=== PATIENT | male | born 1935 | race Caucasian/White ===

== ENCOUNTER 2016-11-07 17:34 | Inpatient (IN) | payer OTHER ==
[~2016-11-07] VITALS: Ht 165.1 cm; Wt 77.3 kg
[~2016-11-07 17:34] MED LIST: ASPIRIN EC81 M1 PO; BRILINTA90 M1 PO; HEPARIN 2525000 UNI1 IV; LASIX20 M1 PO; LASIX40 M1 PO; LIPITOR80 MG PO; LISINOPRIL5 M1 PO; METFORMIN HCL750 MG PO; METOPROLOL SUCC50 M2 PO; MUCINEX600 MG; NITROSTAT 0.4MG1 BO2 SL; TIMOLOL MALEATE10 M1 OD; ZOLOFT25 M1 PO
--- NOTE | 2016-11-07 17:39 | ED DYSPNEA/ASTHMA COMPLAINT ---
History of Present Illness General Chief Complaint: General Adult Stated Complaint: BIBA FOR COUGH,CONGESTION, HX CHF Source: patient, family, old records, EMS Exam Limitations: confusion Allergies Coded Allergies: NO KNOWN ALLERGIES (10/28/15) Reconcile Medications Aspirin (Ecotrin*) 81 MG TABLET.DR 1 TAB PO DAILY HEART/BLOOD (Reported) Atorvastatin (Atorvastatin Calcium) 80 MG TAB 1 MG PO 1700 heart health Furosemide (Lasix) 20 MG TABLET 1 TAB PO BID DIURETIC (Reported) Lisinopril 5 MG TABLET 1 TAB PO DAILY HTN (Reported) Metformin HCl (Metformin HCl ER) 750 MG TAB.ER.24H 1 TAB PO BID DM (Reported) Sertraline HCl (Zoloft) 25 MG TABLET 75 MG PO DAILY DEPRESSION (Reported) Ticagrelor (Brilinta) 90 MG TABLET 1 TAB PO BID HEART/BLOOD (Reported) Triage Nurses Notes Reviewed? yes Onset: Abrupt Duration: week(s): (1), constant, getting worse Timing: recent history Severity: moderate, severe HPI: 80-year-old male comes into emergency room for further evaluation of altered mental status and shortness of breath is been going on for the past week getting progressively worse. Patient has a history of congestive heart failure. Family denies any fever. Patient denies any pain anywhere or any vomiting. Patient is able to answer questions and follow commands but is confused on basic things. Family reports that this is not normal. He has wounds on his feet bilaterally. There has been no falls or trauma recently. (MEL GALAVIZ,NORM) Vital Signs & Intake/Output Vital Signs & Intake/Output Vital Signs Date Time Temp Pulse Resp B/P Pulse O2 O2 Flow FiO2 Ox Delivery Rate 11/07 2056 96.5 94 18 94/54 98 Room Air 11/07 1999 96.5 92 18 86/54 99 Room Air 11/07 191 99 Room Air 11/07 1909 96.5 87 18 91/57 98 Room Air 11/07 1836 95 20 90/57 98 Room Air 11/07 1754 94.0 88 20 86/59 99 Room Air Past History Travel History Traveled to [place] past 21 day No Medical History Any Pertinent Medical History? 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 Hx Contributory? No (NORM RAMIREZ) Review of Systems Review of Systems Constitutional: Reports: see HPI. EENTM: Reports: no symptoms. Respiratory: Reports: see HPI. Cardiovascular: Reports: no symptoms. GI: Reports: no symptoms. Genitourinary: Reports: no symptoms. Musculoskeletal: Reports: no symptoms. Skin: Reports: no symptoms. Neurological/Psychological: Reports: no symptoms. Hematologic/Endocrine: Reports: no symptoms. Immunologic/Allergic: Reports: no symptoms. All Other Systems: Reviewed and Negative (NORM RAMIREZ) Physical Exam Physical Exam General Appearance: lethargic, mild distress, thin Head: atraumatic Eyes: Left: other (discharge left eye). Ears, Nose, Throat: normal ENT inspection, hearing grossly normal Neck: normal inspection Respiratory: no respiratory distress, decreased breath sounds Cardiovascular: irregularly irregular Gastrointestinal: soft Extremities: normal inspection Neurologic/Psych: awake, alert Skin: intact, normal color Core Measures ACS in differential dx? Yes Severe Sepsis Present: Yes BC x2: Yes Lactic Acid x2: Yes IV ABX Broad Spectrum: Yes NS/LR Started: Yes Septic Shock Present: No (NORM RAMIREZ) ED Sepsis Exam Date of Focused Sepsis Exam: 11/07/16 Time of Focused Sepsis Exam: 1922 Sepsis Cardiac Exam: Tachycardia Sepsis Resp Exam: decreased breath sounds Sepsis Cap Refill Exam: <2 Sec Sepsis Peripheral Pulse Exam: Weak Sepsis Peripheral Pulse Location: Radial Sepsis Skin Color Exam: Flushed Skin Temp/Moisture Exam: Cool/Dry (NORM RAMIREZ) Progress Differential Diagnosis: asthma, AMI, bronchitis, costochondritis, CHF, COPD, musculoskeletal pain, pericarditis, pulmonary embolism, pneumonia, pneumothorax, rib fracture, unstable angina Diagnostic Imaging: Viewed by Me: Radiology Read. Discussed w/RAD: Radiology Read. Radiology Impression: SERVICE DATE: 11/07/16 EXAM TYPE: RAD - XRY- PORTABLE CHEST XRAY EXAMINATION: XR PORTABLE CHEST CLINICAL INFORMATION: Shortness of breath. COMPARISON: Chest x-ray 10/17/2016, October 16, October 14, October 28 and 03/08/2010. TECHNIQUE: Portable view of the chest was obtained. 5:51 PM FINDINGS: Persistent density at both lung bases greater on right than left. This is due to bilateral effusions and probable underlying consolidation/atelectasis. This is persistent over multiple prior studies. The density at both lung bases is worse than the prior exam of 10/17/2016 at the right lung base with similar on the left. Central hilar vessels remain mildly prominent. IMPRESSION: Persistent dense left and right lung base opacity due to effusions and probable underlying consolidation atelectasis. Persistent central hilar pulmonary vascular prominence. Initial ED EKG: rate (94), AFIB, ST elevation (v2), ST depression (v4,v5) Prior EKG: changed Comments: 11/07/2016 7:25:54 PM Full 30 mL/kg not given due to the patient's severe history of heart failure, pulmonary edema currently, and last EF was 35%. 11/07/2016 7:28:14 PM patient's case discussed with hospitalist regarding ICU admission. We have discussed the patient's EKG changes, hypotension, acute kidney injurY and current clinical condition. Fluids will continue to be bolused long with monitoring of blood pressure and heart rate. Although we have no clear clinical focus of infection at this time the patient is being treated with IV antibiotics after villasenor culturing. (NORM RAMIREZ) Plan of Care: Orders Procedure Date/time Status Nothing by Mouth 11/08 B Active TROPONIN LEVEL 11/08 0600 Active EKG 11/08 0600 Active CBC WITHOUT DIFFERENTIAL 11/08 0500 Active BASIC ELECTROLYTES PLUS BUN&CR 11/08 0500 Active EKG 11/08 0000 Active VRE ACTIVE SURVIELLANCE 11/07 2123 Active ACTIVE SURVEILLANCE NARES 11/07 2123 Active LOWER RESPIRATORY CULTURE 11/07 2121 Active Code Status 11/07 2121 Active LACTIC ACID 11/07 2058 Complete PROTHROMBIN TIME 11/07 2041 Active Admit to inpatient 11/07 2017 Active SWALLOW EVALUATION 11/07 1952 Active TRC EVALUATION (GEN) 11/07 1952 Active PT Evaluate & Treat 11/07 1952 Active Pathway - chart 11/07 1952 Active House Staff 11/07 1952 Active Patient Data 11/07 1952 Active Kidd, Insertion/Removal/Asses 11/07 1947 Active CULTURE,URINE 11/07 1947 Active Skin/Pressure Ulcer Assess (Sk 11/07 1918 Active CULTURE,URINE 11/07 180 Active URINALYSIS 11/07 180 Complete Add-on Test (ER Only) 11/07 1759 Active BLOOD CULTURE 11/07 1759 Active Telemetry/Auto Design Detailer 11/07 1738 Active TROPONIN LEVEL 11/07 1738 Complete LACTIC ACID 11/07 1738 Complete COMPREHENSIVE METABOLIC PANEL 11/07 1738 Complete CBC WITHOUT DIFFERENTIAL 11/07 1738 Complete B-TYPE NATRIURETIC PEP (BNP) 11/07 1738 Complete EKG 11/07 1735 Active XRY-FOOT COMPLETE, LEFT 11/07 UNK Active Wound Care/Dressing 11/07 UNK Active VTE Mechanical Prophylaxis 11/07 UNK Active Vital Signs 11/07 UNK Active Precautions 11/07 UNK Active Intake & Output 11/07 UNK Active FingerStick- Glucose 11/07 UNK Active Current Medications Sig/Maria Dolores Start time Last Medication Dose Stop Time Status Admin Atorvastatin Calcium 1 MG 1700 11/08 1700 AC (Lipitor) Aspirin Buffered 81 MG DAILY 11/08 1000 AC (Ecotrin) Sertraline HCl 75 MG DAILY 11/08 1000 AC (Zoloft) Insulin Human Regular 0 Q6 11/07 2359 AC (Novolin R Inj (Npo Patient)) Heparin Sodium 5,000 UNIT Q8 11/07 2200 AC (Porcine) Ticagrelor 90 MG BID 11/07 2200 AC (Brilinta) Laboratory Tests 11/07/162054: Lactic Acid 4.5 H 11/07/161955: Urinalysis LIGHT H, Urine Color YEL, Urine Clarity HAZY H, Urine pH 5.5, Ur Specific [place] >= 1.030, Urine Protein >=300 H, Urine Ketones TRACE H, Urine Nitrite NEG, Urine Bilirubin NEG, Urine Urobilinogen 0.2, Ur Leukocyte Esterase NEG, Ur Microscopic SEDIMENT EXAMINED, Urine RBC 50-75 H, Urine WBC RARE, Ur Epithelial Cells MANY H, Urine Hemoglobin LARGE H, Urine Glucose NEG 11/07/16 1800: Lactic Acid Cancelled 11/07/16 1800: Anion Gap 21 H, Estimated GFR 13 L, BUN/Creatinine Ratio 20.7, Glucose 103 H, Lactic Acid 4.0 H, Calcium 9.3, Total Bilirubin 1.3, AST 41, ALT 44, Alkaline Phosphatase 115, Troponin I 1.39 *H, Zpg-G-[id number] Pept 41469 H, Total Protein 6.6, Albumin 3.9, Globulin 2.7, Albumin/Globulin Ratio 1.4, CBC w Diff NO MAN DIFF REQ, RBC 4.29 L, MCV 88.9, MCH 29.9, RDW 16.8 H, MPV 8.5, Gran % 86.9 H, Lymphocytes % 9.2 L, Monocytes % 3.8, Eosinophils % 0.1, Basophils % 0 L, Absolute Granulocytes 11.0 H, Absolute Lymphocytes 1.2, Absolute Monocytes 0.5, Absolute Eosinophils 0, Absolute Basophils 0, PUBS MCHC 33.6 Microbiology 11/07 2123 UPPER RESP: Surveillance Culture - ORD 11/07 2123 GI: Surveillance Culture - ORD 11/07 2121 LOWER RESP: Respiratory Culture - ORD 11/07 2121 LOWER RESP: Gram Stain - ORD 11/07 1955 URINE ROUT: Urine Culture - RECD 11/07 1818 BLOOD: Blood Culture - RECD 11/07 180 URINE ROUT: Urine Culture - ORD 11/07 1800 BLOOD: Blood Culture - RECD Comments: 11/07/2016 7:48:55 PM patient's case discussed with Dr. Luna. He feels that the patient's elevated troponin is most likely a reflection of his acute kidney injury along with some demand ischemia. He recommends stabilizing blood pressure and repeating EKG and troponin. (BRENNA CARSON,NIKITA Mondragon) Departure Departure Disposition: STILL A PATIENT Condition: Stable Clinical Impression Primary Impression: Non-STEMI (non-ST elevated myocardial infarction) Secondary Impressions: Sepsis Referrals: NUNU CARSON,HAMIDA Young (PCP/Family) Departure Forms: Customer Survey General Discharge Information (NORM RAMIREZ) Admission Note Spoke With: ANNETTA FUENTES MD Documentation of Exam: Documentation of any treatments & extenuating circumstances including Concerns Regarding Discharge (functional status, medication knowledge or non-compliance, living conditions, etc.) that warrant an admission rather than observation: This patient is critically ill with severe acute kidney injury, profound volume depletion, and elevated troponin and EKG changes. In addition he is also hyponatremic and suffering from a metabolic acidosis. The patient requires ICU level care with close clinical monitoring, continuous cardiac monitoring and chemistries and troponin levels. Python Django Developer and cardiology consultations should be obtained. Patient should be given intravenous fluid boluses until his blood pressure stabilizes. The patient has a history of a poor ejection fraction so pulse oximetry and lung examinations should be obtained for possibility of congestive heart failure. The patient's prognosis is guarded to grave at this point. He will require a multiple day hospitalization. PA/CLAM BED LABORER Co-Sign Statement Statement: ED Attending supervision documentation- [X] I saw and evaluated the patient. I have also reviewed all the pertinent lab results and diagnostic results. I agree with the findings and the plan of care as documented in the PA's/CLAM BED LABORER's documentation. Patient is currently hypotensive and mildly tachycardic. She otherwise clinically is awake alert and answering questions. He is a rather poor historian however frequently relying on his to provide details. He has had a very poor PO intake recently and has been on 40 mg of Lasix twice a day. His urine output has tapered off recently. I suspect volume depletion and he is being bolused with IV fluids. In addition he has had a bit of a congested cough over the past few days so sepsis secondary to pneumonia, osteomyelitis or urinary tract infection are also being considered. [] I have reviewed the ED Record and agree with the PA's/CLAM BED LABORER's documentation. [] Additions or exceptions (if any) to the PAs/CLAM BED LABORER's note and plan are summarized below: [] (BRENNA CARSON,NIKITA Mondragon) Critical Care Note Critical Care Note Critical Care Time: 30-74 min (NORM RAMIREZ)
--- NOTE | 2016-11-07 17:54 | NUR ---
PT BIBA FOR PRODUCTIVE COUGH, AND WEAKNESS. PER EMS PT'S HR WENT UP INTO THE 160'S BUT WENT BACK DOWN INTO THE 90'S. PT HAS HX OF COPD, [place], CHF, DIABETES, AND KIDNEY PROBLEMS. PT HAS GREEN DRAINAGE FROM LEFT PROSTHETIC EYE. PT O2 SAT 100% ON 2L, NOW SATING 99% ON ROOM AIR. PT HAS BILATERAL LOWER EXTREMITY EDEMA AND WOUNDS THAT "NEEDED TO BE CHECKED OUT BUT NEVER WERE". GUILLAUME ZHENG AT BEDSIDE FOR EVAL. PT ALERT AND ORIENTED TO PERSON AND PLACE BUT NOT TIME. AFEBRILE, NO RESPIRATORY DISTRESS NOTED.
--- NOTE | 2016-11-07 18:08 | NUR ---
20G PLACED IN LEFT AC. FLUSHED PER PROTOCOL. NO REDNESS, SWELLING, HEAT, OR PAIN TO SITE. NS BOLUS INFUSING PER EMAR. LABS DRAWN. LAV, YELLOW, BLUE, [place]FF[place], PINK, AND FIRST CULTURES SENT TO LAB. PT. TOLERATED PROCEDURE WELL.
--- NOTE | 2016-11-07 18:22 | NUR ---
PT MEDICATED WITH NS INFUSING @250MLS/HR
--- NOTE | 2016-11-07 18:25 | RADIOLOGY REPORT ---
EXAMINATION: XR PORTABLE CHEST CLINICAL INFORMATION: Shortness of breath. COMPARISON: Chest x-ray 10/17/2016, October 16, October 14, October 28 and 03/08/2010. TECHNIQUE: Portable view of the chest was obtained. 5:51 PM FINDINGS: Persistent density at both lung bases greater on right than left. This is due to bilateral effusions and probable underlying consolidation/atelectasis. This is persistent over multiple prior studies. The density at both lung bases is worse than the prior exam of 10/17/2016 at the right lung base with similar on the left. Central hilar vessels remain mildly prominent. IMPRESSION: Persistent dense left and right lung base opacity due to effusions and probable underlying consolidation atelectasis. Persistent central hilar pulmonary vascular prominence.
[2016-11-07 18:32] LABS: ABSOLUTE BASOPHIL COUNT 0 /CUMM (0.0-0.2); ABSOLUTE EOSINOPHIL COUNT 0 /CUMM (0.0-0.7); ABSOLUTE LYMPH COUNT 1.2 /CUMM (1.2-3.4); ABSOLUTE MONOCYTE COUNT 0.5 /CUMM (0.10-0.60); BASOPHIL % 0 % (0.0-2.0); EOSINOPHIL % 0.1 % (0-5); HEMATOCRIT 38.1 % (42-52); MEAN CORPUSCULAR HGB 29.9 PG (27.0-31.0); MEAN CORPUSCULAR HGB CONC 33.6 G/DL (33.0-37.0); MEAN CORPUSCULAR VOLUME 88.9 FL (80.0-94.0); MEAN PLATELET VOLUME 8.5 FL (7.4-10.4); PLATELET COUNT 231 /CUMM (130-400); RBC DISTRIBUTION WIDTH 16.8 % (11.5-14.5); RED BLOOD CELL CT 4.29 /CUMM (4.70-6.10); WHITE BLOOD CELL COUNT 12.6 /CUMM (4.8-10.8)
[2016-11-07 18:36] LABS: GRANULOCYTE % 86.9 % (42.2-75.2)
--- NOTE | 2016-11-07 18:39 | NUR ---
PT MEDICATED WITH 1G FORTAZ AND 1G VANCOMYCIN PER EMAR
--- NOTE | 2016-11-07 19:10 | NUR ---
CRITICAL TEST RESULTS [id number] MIKHAIL CHAPARRO 80 M TESTS AND RESULTS: TROPONIN 1.39 Results received and read back by: BRIDGET RAO Results received date and time: 11/07/161910 The following provider was notified of the results, and read the results back: GUILLAUME LEAL Notified date and time: 11/07/16 at 1911
--- NOTE | 2016-11-07 19:18 | NUR ---
GUILLAUME ZHENG AT BEDSIDE
[2016-11-07] MEDS ORDERED: LASIX20 M1 PO (19:32)
[2016-11-07] MEDS ORDERED: METFORMIN HCL750 M1 PO (19:34)
--- NOTE | 2016-11-07 19:49 | History & Physical ---
RUSSELL SULLIVAN 11/07/161947: General Information and HPI MD Statement: I have seen and personally examined MIKHAIL CHAPARRO and documented this H&P. The patient is a 80 year old M who presented with a patient stated chief complaint of [altered mentation, decreased PO intake, and difficulty]. Source of Information: family, old records Exam Limitations: clinical condition History of Present Illness: 80 y/o male with PMH of CAD s/p 2 stent placements in 11/10, HFrEF with an EF of 30-35%, global hypokinesis as demonstrated by echo 10/10, NIDDM, HTN, HLP, PVD s /p ? stents (F/U with Dr. Acosta - vascular surgeon) and legally blind in both eyes who was recently discharged from on 10/18/16 was BIBA with chief complaint of generalized weakness, altered mentation and difficulty ambulating. History is obtained from the patient's . According to her Mr. Snow was discharged home from [facility] on 10/18/2016. At that time was admitted for CHF exacerbation and was found to have type I second-degree AV block. He was advised to follow-up with his cost analyst Dr. Stevenson for placement of permanent pacemaker. According to the patient's he saw Mr. Dr. Stevenson after discharge and was scheduled to see him on 11/17/2016 for Holter monitoring. He was doing increasingly well after discharge from the hospital up until last Thursday after which she started to have increased difficulty ambulating, and his oral intake also decreased. He has a visiting nurse at home and his blood pressures have been ranging in the 100s for the past week or so now. This morning as well his blood pressure was lowered to 100/50. His nurse spoke with Dr. Stevenson yesterday and Lasix was decreased to 20 mg twice a day. She also spoke with her primary care physician this morning and was advised to hold Lisinopril. Patient denies any chest pain, palpitations, has nonpurulent productive cough that hasn't changed, no history of sick contacts, fever, chills, abdominal pain, nausea, vomiting and/or burning micturition. He denies any headache, sore throat, earache. Of note he has necrotic lesions on his left foot, and is to be followed up by wound clinic next week. Allergies/Medications Allergies: Coded Allergies: NO KNOWN ALLERGIES (10/28/15) Home Med list Aspirin (Ecotrin*) 81 MG TABLET.DR 1 TAB PO DAILY HEART/BLOOD (Reported) Atorvastatin (Atorvastatin Calcium) 80 MG TAB 1 MG PO 1700 heart health Furosemide (Lasix) 20 MG TABLET 1 TAB PO BID DIURETIC (Reported) Lisinopril 5 MG TABLET 1 TAB PO DAILY HTN (Reported) Metformin HCl (Metformin HCl ER) 750 MG TAB.ER.24H 1 TAB PO BID DM (Reported) Sertraline HCl (Zoloft) 25 MG TABLET 75 MG PO DAILY DEPRESSION (Reported) Ticagrelor (Brilinta) 90 MG TABLET 1 TAB PO BID HEART/BLOOD (Reported) Compliance With Home Meds: UNKNOWN Past History Travel History Traveled to [place] past 21 day No Medical History Neurological: NONE EENT: blindness, hearing loss Cardiovascular: CAD (status post 2 stents 11/10), CHF, hypertension, hyperlipidemia, NSTEMI Respiratory: NONE Gastrointestinal: NONE Hepatic: NONE Renal: NONE Musculoskeletal: NONE Psychiatric: anxiety, depression Endocrine: diabetes Blood Disorders: NONE Cancer(s): NONE SENIOR PROGRAM ANALYST/Reproductive: NONE History of MRSA: No History of VRE: No History of CDIFF: No Pneumonia Vaccine: 10/26/14 Influenza Vaccine: 07/26/15 Surgical History Surgical History: status post venous closure on both lower extremities Past Family/Social History Family History Relations & Conditions if any FATHER (STROKE). BROTHER FH: CAD (coronary artery disease) SISTER FH: CAD (coronary artery disease) Relation not specified for: *No pertinent family history Psychosocial History Where do you live? Home Who Do You Live With? spouse Services at Home: Home Health Aide Primary Language: Bulgarian Illicit Drug Use: denies illicit drug use Functional Ability ADLs Needs Assist: dressing, eating, toileting, bathing. Ambulation: independent IADLs Needs Assist: shopping, housework, finances, food prep, telephone, transportation, medication admin. Review of Systems Review of Systems Constitutional: Reports: weakness. Denies: chills, diaphoresis, fever. EENTM: Denies: nasal congestion, throat pain. Cardiovascular: Reports: peripheral edema. Denies: chest pain, orthopena, palpitations, syncope. Respiratory: Reports: cough, sputum production. Denies: hemoptysis, orthopnea, short of breath, wheezing. GI: Denies: abdominal pain, constipation, diarrhea, nausea, bloody stool, vomiting. Genitourinary: Reports: no symptoms. Neurological/Psychological: Reports: weakness. Denies: headache, numbness, tingling, tremors, unable to move lower ext, unable to move upper ext. Exam & Diagnostic Data Last 24 Hrs of Vital Signs/I&O Vital Signs Date Time Temp Pulse Resp B/P Pulse O2 O2 Flow FiO2 Ox Delivery Rate 11/07 2056 96.5 94 18 94/54 98 Room Air 11/07 1999 96.5 92 18 86/54 99 Room Air 11/07 1911 99 Room Air 11/07 190 96.5 87 18 91/57 98 Room Air 11/07 1836 95 20 90/57 98 Room Air 11/07 1754 94.0 88 20 86/59 99 Room Air Physical Exam General Appearance Alert, Oriented X3, Cooperative, lethargic HEENT Atraumatic, PERRLA, EOMI, dry mucous membranes Neck Supple, No JVD, +2 Carotid Pulse wo Bruit, No LAD Cardiovascular Normal S1, Normal S2, grade II/ systolic murmer heard best at the RSB Lungs b/l air entry, no murmers, or crackles appreciated Abdomen Normal Bowel Sounds, Soft, No Tenderness Neurological Normal Speech Extremities 2-3+ b/l pitting edema extending up to acosta. Has a necrotic lesion on his left great toe, 2nd and 3rd toe, not draining purulent discharge, unable to palpate pulses peripherally given edema Last 24 Hrs of Labs/Lul: Laboratory Tests 11/07/162054: Lactic Acid 4.5 H 11/07/161955: Urinalysis LIGHT H, Urine Color YEL, Urine Clarity HAZY H, Urine pH 5.5, Ur Specific [place] >= 1.030, Urine Protein >=300 H, Urine Ketones TRACE H, Urine Nitrite NEG, Urine Bilirubin NEG, Urine Urobilinogen 0.2, Ur Leukocyte Esterase NEG, Ur Microscopic SEDIMENT EXAMINED, Urine RBC 50-75 H, Urine WBC RARE, Ur Epithelial Cells MANY H, Urine Hemoglobin LARGE H, Urine Glucose NEG 11/07/16 1800: Lactic Acid Cancelled 11/07/16 1800: Anion Gap 21 H, Estimated GFR 13 L, BUN/Creatinine Ratio 20.7, Glucose 103 H, Lactic Acid 4.0 H, Calcium 9.3, Total Bilirubin 1.3, AST 41, ALT 44, Alkaline Phosphatase 115, Troponin I 1.39 *H, Ovm-P-Cxbudvoecfd Pept 66708 H, Total Protein 6.6, Albumin 3.9, Globulin 2.7, Albumin/Globulin Ratio 1.4, CBC w Diff NO MAN DIFF REQ, RBC 4.29 L, MCV 88.9, MCH 29.9, RDW 16.8 H, MPV 8.5, Gran % 86.9 H, Lymphocytes % 9.2 L, Monocytes % 3.8, Eosinophils % 0.1, Basophils % 0 L, Absolute Granulocytes 11.0 H, Absolute Lymphocytes 1.2, Absolute Monocytes 0.5, Absolute Eosinophils 0, Absolute Basophils 0, PUBS MCHC 33.6 Microbiology 11/07 2123 UPPER RESP: Surveillance Culture - ORD 11/07 2123 GI: Surveillance Culture - ORD 11/07 2121 LOWER RESP: Respiratory Culture - ORD 11/07 2121 LOWER RESP: Gram Stain - ORD 11/07 195 URINE ROUT: Urine Culture - RECD 11/07 1819 BLOOD: Blood Culture - RECD 11/07 180 URINE ROUT: Urine Culture - ORD 11/07 1800 BLOOD: Blood Culture - RECD Diagnostic Data EKG Results HR: 94, 2nd degree heart block, ST-T changes. VT - 176, QTc: 548 CXR Results FINDINGS: Persistent density at both lung bases greater on right than left. This is due to bilateral effusions and probable underlying consolidation/atelectasis. This is persistent over multiple prior studies. The density at both lung bases is worse than the prior exam of 10/17/2016 at the right lung base with similar on the left. Central hilar vessels remain mildly prominent. IMPRESSION: Persistent dense left and right lung base opacity due to effusions and probable underlying consolidation atelectasis. Persistent central hilar pulmonary vascular prominence. Assessment/Plan Assessment: 80 y/o male with PMH of CAD s/p 2 stent placements in 11/10, HFrEF with an EF of 30-35%, global hypokinesis as demonstrated by echo 10/10, NIDDM, HTN, HLP, PVD s /p ? stents (F/U with Dr. Acosta - vascular surgeon) and legally blind in both eyes who was recently discharged from on 10/18/16 was BIBA with chief complaint of generalized weakness, altered mentation and difficulty ambulating. Vitals at the time of admission blood pressure 91/57, hypothermic to 94, pulse 88, respiratory rate 20 saturating 99% on room air. On physical exam he is lethargic, but alert and oriented 3. HEENT reveals pupils not reactive to light, dry mucous membranes. Examination of the neck did not reveal any JVD, neck was supple, no lymphadenopathy. Cardiovascular exam revealed normal S1, S2, grade 2 x 6 systolic murmur heard best at right sternal border. Respiratory exam revealed bilateral air entry, no murmurs or crackles appreciated. Abdominal exam revealed normal bowel sounds, abdomen soft, nontender nondistended. Neuro exam was pertinent for normal speech. Examination of the lower extremities revealed 2-3+ bilateral pitting edema extending up to acosta and a necrotic lesion on his left great toe, second and third toe not draining purulent discharge. Unable to palpate pulses peripherally, extremities were cold to palpation. There is bilateral chronic venous stasis changes more so pronounced in the left lower extremity. Labs pertinent for leukocytosis with a white blood cell count of 12 600, H&H of 12.8/38.1 and a platelet count of 231,000. Serum chemistries revealed hyponatremia with a sodium of 131, hyperkalemia with a potassium of 5.2, bicarbonate of 21, elevated anion gap of 21, BUN 92 and a creatinine of 4.5. Serum lactic acid was elevated to 4.07 and glucose was elevated to 103. LFTs were unremarkable with an AST/ALT of 41/44 and an alkaline phosphatase of 1:15. Troponin was elevated at 1.39 and BNP elevated 2 71,500. Of note a Lyme's titer was ordered on his previous admission it was negative. UA was a dirty specimen revealing proteinuria, ketonuria trace, 50-75 rbc's and large amount of hemoglobin. Chest x-ray revealed Persistent dense left and right lung base opacity due to effusions and probable underlying consolidation atelectasis. Persistent central hilar pulmonary vascular prominence. Last echocardiogram done on 10/15/16 revealed a left ventricular ejection fraction of 35% with global hypokinesis. In the ER here at received ceftaz edema and vancomycin 1 together with 250 mL of normal saline bolus. Given his clinical presentation, lab work and radiological imaging he most likely aseptic secondary to necrotic lesion on his left foot versus questionable aspiration pneumonia. His AK I could be explained by decreased renal perfusion secondary to CHF exacerbation as there is radiological evidence of pulmonary venous congestion though the patient does not seem to be hypervolemic on clinical exam versus dehydration given decreased by mouth intake and over- diuresis. His leukocytosis could potentially be secondary to dehydration as well. His elevated metabolic anion gap acidosis could be explained by a lactic acidosis given him being on metformin in the setting of acute renal failure. Assessment and plan Admit patient to ICU - Respiratory Currently stable saturating 98% on room air Maintain on aspiration precautions Cannot r/o PNA - ID #Sepsis most likely secondary to necrotic lesions on his left great toe as well as second and third toe vs HCAP (given patient was recently in the hospital within past 90 days) - His qSOFA is 2 - X-ray of the left foot to rule out osteomyelitis - Patient already received Vancomycin and ceftaz in the ER. - Decide on continuation of Abx in AM - F/U BCX2, UC, LRC - Cardiovascular #Hypotension 2/2 hypovolemia vs sepsis Normal saline bolus with 1 liter. Start on Levophed to maintain goal MAP of 65mmHg. Maintain CVP >[address] Savage. Recommedns giving a dose of steroids and mainatin a CVP of 8. If need be intubate. #Acute on chronic HFrEF (30-35%) - Most likely 2/2 sepsis - Monitor strict I's and O's. - Holding Lisinopril and Lasix for now. - Of note patient is not on B-blockers as he had symptommatic bradycardia with Type II Mobitz block on his previous admission. #Type II Mobitz block. - cardio consult with Dr. Luna in AM - [place] off # NSTEMI - Most likely secondary to demand ischemia - R/O ACS - F/U trop and EKG at 12:00 and 6:00am - Hold off repeating ECho #CAD s/p stents. - Continue ASA, Brillinta - Hold Lisinopril given AMADO - Not on B-Blockers given symptommatic bradycardia on previous admission - Metabolic #AMADO - Most likey pre-renal 2/2 hypovolemia vs CHF exacerbation vs sepsis - Avoid nephrotoxic agents. - Strict I's and O's # Elecvated anion gap acidosis - 2/2 Lactic acidosis (2/2 sepsis vs. Metformin induced in setting of AMADO) - Delta delta is 3.0 - Concurrent metabolic alkalosis versus compensatory respiratory acidosis - F/U repeat lactic acid # NIDDM - Hold Metformin - Start on Novolin sliding scale for now. - AccuchecksQ6 - F/U HbA1c - Hematology - Anemia - Chronic - F/U iron studies - Guiac all stools. - Neurological - AMS 2/2 sepsis vs hypovolemia in seteting of decreased PO intake. - NPO for now, as patient failed bedside swallow eval. - F/U swallow eval in AM - DVT prophylaxis - On Heparin 5000IU TID SC - Code Status - Full Code. As Ranked By This Provider Problem List: 1. Sepsis 2. Bilateral lower extremity edema 3. Acute on chronic renal failure 4. Non-STEMI (non-ST elevated myocardial infarction) Core Measures/Miscellaneous Acute Coronary Syndrome ACS Diagnosis: No Cerebrovascular Accident CVA/TIA Diagnosis: No Congestive Heart Failure CHF Diagnosis: Yes Date of most recent Echo: 10/15/16 Last Known EF %: 35 BOO/ARB for EF <40%: No No BOO/ARB d/t: Renal Failure/Azotemia Venous Thromboembolism VTE Risk Factors: Age > 40 VTE Prophylaxis Ordered Inpt: [facility] d/t: No contraindications No VTE Pharm Prophylaxis d/t: No contraindications VTE Diagnosis: No VTE Type: NONE VTE Confirmed by (Test): NONE Severe Sepsis Severe Sepsis Present: Yes BC x2: Yes Lactic Acid x2: Yes IV ABX Broad Spectrum: Yes NS/LR Started: Yes Septic Shock Septic Shock Present: No Miscellaneous Documentation Attending Case Discussed With: ANNETTA FUENTES MD Primary Care Physician: HAMIDA EDDY MD Patient sees these Specialists Dr. Stevenson - cost analyst Dr. Acosta - vascular Level of Patient Care: Critical Care (CRI) Consults Needed: 1 Consulting Specialty: Critical Care Consults Needed: 2 Consulting Specialty: Cardiology Resident Review Statement Resident Statement: admitted by resident ANNETTA FUENTES 11/08/16 0556: Attending Review Statement Attending Statement Attending Statement: examined this patient, discuss w/resident/PA/ROASTERMAN, agreed w/resident/PA/ROASTERMAN, discussed with family, reviewed EMR data (avail), reviewed images, amended to note Attending Assessment/Plan: CC : Lethargy, confusion PMH: CAD S/P stent, NSEMI, HFr EF(30-35%), DM 2, HTN, HLD, PVD, arrhythmias He presented in ER for weakness, decreased by mouth intake, decreased ambulation. Patient was recently admitted for bradycardia and heart failure, beta blockers discontinued and was discharged on by mouth Lasix. Plan was to monitor patient on Holter for pacemaker evaluation. Patient's blood pressure was low normal range according to home health nurse in the past 4 days. Lasix decreased from 40 twice a day to 20 twice a day. Still patient was feeling lethargic and increased him his confusion so family brought him to ER. Vitals: On presentation temperature was 94, heart rate 88 and blood pressure 86/ 59 in ER, saturating 98% on room air. On examination: A O 3, following instructions, patient anxious, Mild respiratory distress, no JVD, no lymphadenopathy, patient has extensive pedal edema, mucosa extremely dry. Patient had dry gangrenous toes, does not appear infected, no pus discharge. CVS : S1-S2, regular. RS: No crackles at presentation. Abdomen: Soft, NT, ND, bowel sounds present. No focal neurological deficit, cognition intact. Labs: WBC 12.6, neutrophils 686%, sodium 131, potassium 5.3, creatinine 4.5, bicarbonate 21, anion gap 21, lactic acid 4.0, troponin 1.38, INR 1.29 EKG: Second-degree heart block Chest x-ray: Dense left and right lung base opacities, secondary to effusion, central vascular congestion. A and P #1 shock: Patient comes hypothermic, leukocytosis, recent hospitalization, chest x-ray shows obesity, severe lactic acidosis, whether septic shock versus hypovolemic shock versus cardiogenic shock. Patient does not have JVD, peripheral pulses feeble, patient received vancomycin and ceftazidime in ER, blood culture, urine culture, sputum culture. Patient's blood pressure was 80s/ 50s in ER, later transferred to ICU change to 80s/Doppler, patient was started on Levophed through peripheral line. I attempted central line without success. Surgery was consulted for central line. The right IJ line was successfully placed. Levophed was started centrally. Dr. Savage was informed. Even with maxed dose of Levophed patient's blood pressure was low, worsening lactic acidosis. Patient had ejection fraction of 30-35% and previous hospitalization with global hypokinesis. Along with it patient also has second-degree heart block, with very labile heart rate. It was discussed with cardiology about trial of dobutamine. Patient was started on dobutamine. Patient may require second pressor, will suggest Brandon-Synephrine, if okay with pulmonology. Consult cardiology, patient may require intubation if respiratory status worsens. Antibiotics to be restarted in a.m. according to renal function. # oliguric renal failure # Over the time with aggressive hydration, JVD elevated, worsening crackles on examination. Consider preemptive intubation if respiratory status worsens. #3 elevated troponins: This appears to be secondary to hypotension, cardiology is informed. #4 patient has dry gangrenous toes but at this point does not appear infected, x -ray does not show any evidence of osteomyelitis. He has extensive peripheral vascular disease. #5 severe metabolic acidosis: Secondary to lactic acidosis and shock, patient will require ABG and bicarbonate drip. #6 patient's prognosis is guarded, patient's bedside the whole night, explained her the critical condition at every point. TTS: 60 minutes
--- NOTE | 2016-11-07 19:56 | NUR ---
REPEAT LACTIC DRAWN, PT DIFF STICK, SCANT AMOUNT SENT.
--- NOTE | 2016-11-07 19:59 | NUR ---
URINE TRIO SENT TO LAB.
--- NOTE | 2016-11-07 20:16 | NUR ---
HOUSE STAFF AT BEDSIDE FOR EVAL
[2016-11-07] MEDS ORDERED: LISINOPRIL5 M1 PO (20:38)
--- NOTE | 2016-11-07 20:51 | NUR ---
PT HAS BED 111-1 AND CLEAN READY
--- NOTE | 2016-11-07 20:55 | NUR ---
PT MEDICATED WITH NS INFUSING AT 500MLS/HR PER EMAR
--- NOTE | 2016-11-07 20:55 | NUR ---
JEFFERSON TUBE DRAWN AND SENT TO LAB.
--- NOTE | 2016-11-07 20:58 | NUR ---
XRAY AT BEDSIDE FOR IMAGING
--- NOTE | 2016-11-07 21:09 | NUR ---
[facility] CALLED FOR TRANSPORT
--- NOTE | 2016-11-07 21:09 | NUR ---
REPORT GIVEN TO MARCELA QUIROS
--- NOTE | 2016-11-07 22:00 | NUR ---
RECEIVED PT FROM ER. A/OX1-2. MOVES ALL EXT. RA, UNABLE TO OBTAIN O2 SAT, MD WELLS MADE AWARE. CLEAR LUNG YEUNG. SBP 80/DOP. NS INFUSING 500ML.HR. RECTAL TEMP 96.7. +2 BLE EDEMA. NECROTIC AREAS TO LEFT TOES. +DOPPLER PULSES. 1AVB 90'S. FC WITH NO OUTPUT. AT BEDSIDE.
--- NOTE | 2016-11-07 22:05 | NUR ---
LEVOPHED GTT STARTED PERIPHERAL AT THIS TIME PER MD WELLS. SBP 80'S DOPPLER. MDS GETTING CONSENT FROM FOR CENTRAL LINE.
--- NOTE | 2016-11-07 22:17 | RADIOLOGY REPORT ---
EXAMINATION: XR FOOT, LEFT CLINICAL INFORMATION: Necrotic wound of great toe, second toe and third toe. Concern for osteomyelitis. COMPARISON: None TECHNIQUE: AP, lateral, and oblique views of the left foot. FINDINGS: There is soft tissue swelling of the foot. There is osteopenia. No focal bone destruction or periosteal reaction. No radiographic evidence of osteomyelitis. Small vessel calcifications in the foot. IMPRESSION: No focal bone destruction. No radiographic evidence of osteomyelitis.
[2016-11-07 22:43] LABS: PT 13.5 SEC (9.4-12.5); PTT 33 SEC (25-37)
[2016-11-07 22:55] LABS: PT 15.9 SEC (9.4-12.5)
[2016-11-08] VITALS: BP 98/00
--- NOTE | 2016-11-08 01:40 | NUR ---
PT APPEARS FLIP BETWEEN 1AVB AND AFIB. HR 90-100'S. MD WELLS AWARE.
--- NOTE | 2016-11-08 02:24 | Proc Note Internal Medicine ---
Medicine Procedure Procedure Date: 11/08/16 Medical Procedure(s): central venous cath place Pre-Operative Diagnosis: Sepsis, hypotension Post-Operative Diagnosis: Same as above Estimated Blood Loss: less than 50ml Anesthesia: local monitored anesthesi Procedure Findings: Preprocedure: The right IJ vein was identified with site right Procedure: The right neck area was prepped with ChloraPrep and the patient was draped from head to toe with central line dressing drape. The right IJ was identified sterilely with site right and the vein was located with needle and syringe. After flash of blood the catheter was removed and guidewire was placed over the syringe without difficulty. An 11 blade was used to lanced the skin at the entrance of the guidewire and dilator was placed without difficulty. The triple -lumen catheter was advanced over the guidewire as a guidewire was slowly withdrawn. Once the guidewire was out each port of the triple-lumen was aspirated of venous blood and then flushed and capped. Biopatch was applied at the skin and the central line was sutured into place and sterile dressing was applied. The patient tolerated the procedure well.
--- NOTE | 2016-11-08 02:30 | NUR ---
MD AQUINO ATTEMPTED RIJ CENTRAL LINE, UNABLE TO PLACE. MD COOK KITCHEN FOOD ASSEMBLER, CALLED. GUILLAUME MOTLEY TO BEDSIDE. RIJ TLC PLACED. CHEST XRAY TO CONFIRM.
--- NOTE | 2016-11-08 02:52 | RADIOLOGY REPORT ---
EXAMINATION: XR PORTABLE CHEST CLINICAL INFORMATION: Central line placement COMPARISON: 11/07/2016 TECHNIQUE: Portable view of the chest was obtained. FINDINGS: There is a new right internal jugular central venous catheter terminating near the cavoatrial junction. Cardiac leads overlie the chest. Low lung volumes. Persistent hazy basilar opacities, right greater than left. No pneumothorax. The cardiomediastinal silhouette is unchanged, with a calcified aorta. No acute osseous abnormality. IMPRESSION: Right internal jugular central venous catheter terminating near the cavoatrial junction. No pneumothorax. Persistent bibasilar opacities, right greater than left suggestive of pleural effusion with airspace opacity.
[2016-11-08 03:40] VITALS: BP 72/00
--- NOTE | 2016-11-08 03:52 | Event Note ---
Event Note Event Note: This patient continues to be hypotensive, low CVP despite giving fluids and nearly maxed out on levo fed. His urine output continues to be 0 mL per hour. Start the patient on dobutamine drip at 0.5 mixed per kilo per hour after discussing with Randy Luna. his chest x-ray after placement of right IJ appears to be in the right place, vascular congestion is still present. We've discontinued the fluids to avoid further fluid overload//pulmonary edema. He may need urgent dialysis in the morning to relieve volume. Nephrology consultation is placed.
--- NOTE | 2016-11-08 04:45 | Event Note ---
Event Note Event Note: Patient still hypotensive. SBP 70. No change after max'd on levophed and dobutamine gtt @ 2mcg/kg/hr. D/w w/ Dr. Savage. Started on phenylephrine gtt, and stress dose of steroids.
--- NOTE | 2016-11-08 05:25 | NUR ---
PT'S DOES NOT WANT ADDITIONAL MEDS, B/P, BLOOD DRAWS, WOULD LIKE FOR PT TO BE COMFORT CARE. DOES NOT WANT D50 GIVEN FOR BS <50. MD MELENDEZ AWARE, IN TO SPEAK WITH FAMILY AND CONTACTING DR PEGUERO. CALLED.
--- NOTE | 2016-11-08 05:59 | Admission Certification ---
Admission Certification Certification Statement - As attending physician, I certify that at the time of - admission, based on clinical presentation, severity of - symptoms, need for further diagnostic testing and - therapeutic interventions, and risk of adverse outcomes - without in-hospital treatment, in my clinical assessment, - this patient requires an acute hospital stay for a minimum - of two nights or longer. I have also considered psychsocial - factors such as support system, advanced age, financial - issues, cognitive issues, and failed out-patient treatments, - past re-admission history, safety of patient, and lack of - compliance as applicable. Specific rationale supporting this admission is: Shock, arrhythmia, respiratory failure, renal failure
--- NOTE | 2016-11-08 06:16 | NUR ---
PT ADRIANA DOWN TO 30'S, AGONAL BREATHING, MD NORA SANCHEZ TO BEDSIDE, PT PRONOUNCHED AT 0555, CEASED BREATHING. [facility] CALLED SPOKE PA BENAVIDEZ, PT IS DECLINED.
--- NOTE | 2016-11-08 06:30 | Event Note ---
See Addendum Event Note Event Note: and Family of the patient asked to deescalate code status at approximately 05:40am. Code status deescalated, soon thereafter the patient experienced cardiac arrest. Per family's wishes, no aggressive/heroic measures were pursued. The patient is unresponsive. On exam the patient did not respond to verbal or physical stimuli. Absent heart and breath sounds. Absent peripheral pulses. Pupils are fixed and dilated. Patient pronounced at 05:05am. Dr. Nguyen was notified. Next of kin/family at bedside. Autopsy declined. Body ok for release. Office of medical assistant ob gyn declined examination per crime scene investigator Leyda Fleming.
--- NOTE | 2016-11-08 06:59 | NUR ---
0300-CHEST XRAY CONFIRMED CENTRAL LINE PLACEMENT, PER MD SANDOVAL OK TO USE LINE, PERIPHERAL LEVOPHED CHANGED TO CENTRAL LINE. 0355- 72/DOP DOBUTAMINE GTT STARTED 0.5MCG/KG 0405-70/DOP LEVOPHED MAX 20MCG. MD SANDOVAL AWARE. 0415- DOBUTAMINE INCREASED TO 2MCG/KG PER MD SANDOVAL. 0435- B/P 70/DOP, MD SANDOVAL AWARE. 0450= NEOSYNEPHRINE GTT STARTED AT 40MCG PER MD SANDOVAL. 0525- 62/DOP. AT BEDSIDE STATES SHE DOES NOT WANT ADDITIONAL MEDS, WANTS PT TO BE COMFORTABLE, MD MELENDEZ TO BEDSIDE. ALL PRESSORS REMAIN, MD MELENDEZ CALLING MD PEGUERO TO CHANGE CODE STATUS TO COMFORT. PT NOW A DNR/DNI
--- NOTE | 2016-11-08 07:27 | NUR ---
PER MD MELENDEZ, STAGE SET DESIGNER, PT IS NOT A CASE.
--- NOTE | 2016-11-09 20:51 | Discharge Summary ---
Visit Information Visit Dates Admission Date: 11/07/16 Discharge Date: 11/08/16 Hospital Course Course Attending Physician: ANNETTA FUENTES MD Primary Care Physician: NUNU CARSON,HAMIDA Young Consulting Request: 1 Consulting Specialty: Cardiology Consulting Request: 2 Consulting Specialty: Critical Care Hospital Course: 80 y/o male with PMH of CAD s/p 2 stent placements in 11/10, HFrEF with an EF of 30-35%, global hypokinesis as demonstrated by echo 10/10, NIDDM, HTN, HLP, PVD s /p ? stents and legally blind in both eyes who was recently discharged from on 10/18/16 was BIBA with chief complaint of generalized weakness, altered mentation and difficulty ambulating. Vitals at the time of admission blood pressure 91/57, hypothermic to 94, pulse 88, respiratory rate 20 saturating 99% on room air. On physical exam he was lethargic, but alert and oriented 3. HEENT revealed pupils not reactive to light, dry mucous membranes. Examination of the neck did not reveal any JVD, neck was supple, no lymphadenopathy. Cardiovascular exam revealed normal S1, S2, grade 2 x 6 systolic murmur heard best at right sternal border. Respiratory exam revealed bilateral air entry, no murmurs or crackles appreciated. Abdominal exam revealed normal bowel sounds, abdomen soft, nontender nondistended. Neuro exam was pertinent for normal speech. Examination of the lower extremities revealed 2-3+ bilateral pitting edema extending up to weir and a necrotic lesion on his left great toe, second and third toe not draining purulent discharge. Unable to palpate pulses peripherally. There was bilateral chronic venous stasis changes more so pronounced in the left lower extremity. Labs pertinent for leukocytosis with a white blood cell count of 12 600, H&H of 12.8/38.1 and a platelet count of 231,000. Serum chemistries revealed hyponatremia with a sodium of 131, hyperkalemia with a potassium of 5.2, bicarbonate of 21, elevated anion gap of 21, BUN 92 and a creatinine of 4.5. Serum lactic acid was elevated to 4.07 and glucose was elevated to 103. LFTs were unremarkable with an AST/ALT of 41/44 and an alkaline phosphatase of 1:15. Troponin was elevated at 1.39 and BNP elevated 2 71,500. Of note a Lyme's titer was ordered on his previous admission it was negative. UA was a dirty specimen revealing proteinuria, ketonuria trace, 50-75 rbc's and large amount of hemoglobin. Chest x-ray revealed Persistent dense left and right lung base opacity due to effusions and probable underlying consolidation atelectasis. Persistent central hilar pulmonary vascular prominence. Last echocardiogram done on 10/15/16 revealed a left ventricular ejection fraction of 35% with global hypokinesis. In the ER he received IV Abx together with bolus of IVF. He was admitted to the ICU for shock that was thought to be 2/2 sepsis (possibly 2/2 HCAP) vs hypovolemic (given decreased PO intake and overdiuresis with diuretics). His clinical condition however, continued to deteriorate. Patient was full codeon admission as per the patient and family's wishes. Given hypotension, central line was placed and he was started on pressors. Consult was obtained with the ICU attending and Insurance Verification Representative surety bond agent. Despite having maxed out on three pressors, he remained hemodynamically unstable. The patient's family decided to de-esclate the code status at around 5:40am on 11/08/16. He was subsequently made DNR/DNI. About 15 minutes later, patient went into cardiac arrest. Per family's wishes, no aggressive/heroic measures were pursued. The patient was unresponsive. On exam he did not respond to verbal or physical stimuli. Absent heart and breath sounds. Absent peripheral pulses. Pupils are fixed and dilated. Time of was declared at 5:55am on 11/08/16. Next of kin /family at bedside. Autopsy declined. Body ok for release. Office of manager medical declined examination per faculty research physician Leyda Fleming. Complications: Please see above. Allergies: Coded Allergies: NO KNOWN ALLERGIES (10/28/15) Significant Procedures: SERVICE DATE: 11/07/16- EXAM TYPE: RAD - XRY-FOOT COMPLETE, LEFT EXAMINATION: XR FOOT, LEFT CLINICAL INFORMATION: Necrotic wound of great toe, second toe and third toe. Concern for osteomyelitis. COMPARISON: None TECHNIQUE: AP, lateral, and oblique views of the left foot. FINDINGS: There is soft tissue swelling of the foot. There is osteopenia. No focal bone destruction or periosteal reaction. No radiographic evidence of osteomyelitis. Small vessel calcifications in the foot. IMPRESSION: No focal bone destruction. No radiographic evidence of osteomyelitis. SERVICE DATE: 11/07/16 EXAM TYPE: RAD - XRY-PORTABLE CHEST XRAY EXAMINATION: XR PORTABLE CHEST CLINICAL INFORMATION: Shortness of breath. COMPARISON: Chest x-ray 10/17/2016, October 16, October 14, October 28 and 03/08/2010. TECHNIQUE: Portable view of the chest was obtained. 5:51 PM FINDINGS: Persistent density at both lung bases greater on right than left. This is due to bilateral effusions and probable underlying consolidation/atelectasis. This is persistent over multiple prior studies. The density at both lung bases is worse than the prior exam of 10/17/2016 at the right lung base with similar on the left. Central hilar vessels remain mildly prominent. IMPRESSION: Persistent dense left and right lung base opacity due to effusions and probable underlying consolidation atelectasis. Persistent central hilar pulmonary vascular prominence. SERVICE DATE: 11/08/16 EXAM TYPE: RAD - XRY-PORTABLE CHEST XRAY EXAMINATION: XR PORTABLE CHEST CLINICAL INFORMATION: Central line placement COMPARISON: 11/07/2016 TECHNIQUE: Portable view of the chest was obtained. FINDINGS: There is a new right internal jugular central venous catheter terminating near the cavoatrial junction. Cardiac leads overlie the chest. Low lung volumes. Persistent hazy basilar opacities, right greater than left. No pneumothorax. The cardiomediastinal silhouette is unchanged, with a calcified aorta. No acute osseous abnormality. IMPRESSION: Right internal jugular central venous catheter terminating near the cavoatrial junction. No pneumothorax. Persistent bibasilar opacities, right greater than left suggestive of pleural effusion with airspace opacity. Disposition Summary Disposition Principal Diagnosis: Septic vs hypovolemic vs cardiogenic shock AMADO NSTEMI Additional Diagnosis: HFrEF CAD S/P stent NSEMI NIDDM HTN HLD PVD Arrhythmias Discharge Disposition: Discharge Instructions General Discharge Information Code Status: Do Not Resucitate/Intubat Patient's Diet: Not Applicable Patient's Activity: Not applicable Follow-Up Instructions/Appts: Not applicable Copies To: NUNU CARSON,HAMIDA MALAVE MD,TUCKER Landis MD Review Statement Documenting Attending: GINA CARSON,ANNETTA
== END 2016-11-08 09:21 | disposition expired | DRG 871 ==
LOC: ENRESERVTM → ENRESERVDT → ERH 17:34 → ERHI 20:18 → CRI 21:28
PROVIDERS: Physician Assistant Medical; ADMIT Internal Medicine
PROC: 05HM33Z Insertion of Infusion Device into Right Internal Jugular Vein, Percutaneous Approach (ICD-10-PCS; principal; 2016-11-08)
DX: A41.9 Sepsis, unspecified organism (principal); R65.21 Severe sepsis with septic shock; I21.4 Non-ST elevation (NSTEMI) myocardial infarction; N17.9 Acute kidney failure, unspecified; E87.2 Acidosis; I25.10 Atherosclerotic heart disease of native coronary artery without angina pectoris; I11.0 Hypertensive heart disease with heart failure; Z95.5 Presence of coronary angioplasty implant and graft; E11.9 Type 2 diabetes mellitus without complications; Z79.84 Long term (current) use of oral hypoglycemic drugs; E78.5 Hyperlipidemia, unspecified; I73.9 Peripheral vascular disease, unspecified; H54.8 Legal blindness, as defined in USA; Z66 Do not resuscitate
CPT/HCPCS: CCU; 36415; 73630-LT; 81001; 82436; 87040; 87070; 87086; 87147; 93005; 93010; 96374; 96375; J0713; J1644; J1720; J2930; J3370; J3490; J7040; J7060